=== PATIENT | female | born 1990 | race Caucasian/White ===

== ENCOUNTER → 2017-02-13 | Outpatient (CLI) | payer OTHER ==
[~2017-02-13] MED LIST: ALPRAZOLAM PO; DEPO-PROVER400 MG/ML; FLEXERIL10 MG PO; MACROBID100 MG PO; MOTRIN600 M1 PO; NO MEDICATIONS; PREDNISONE10 MG/DOSE PO; SKELAXIN PO; TYLOX1 CAP 5/50 PO; VALTREX PO; VICODIN PO
--- NOTE | ~2017-02-13 | MR32 ---
[facility] A Service [facility] RADIOLOGY TEXT RESULTS PATIENT: DALTON RODRIGUEZ LOCATION: [facility] : 86 UNIT #: [id number] AGE: [address]: Marvin Rg MD SEX: F ORDER DR: [id number] [address] [id number] O MR#: [id number] Acc #: [id number] NAME: DALTON RODRIGUEZ : 1990 SEX: F STUDY DATE/TIME: 02/13/2017 10:00 UNIT: [facility] ROOM: STUDY DESCRIPTION: MR Cervical Wo Contrast Attending Physician: Marvin Rg M.D. Ordering Physician: Braden Best M.D. Primary Care Physician: Braden Best M.D. MRI CENTER REPORT This report is preliminary unless electronic signature is present. EXAM Cervical MRI HISTORY Worsening neck pain radiating toward the right side for the past several months. TECHNIQUE Multiplanar imaging of the cervical spine was performed with short and long TR. FINDINGS Alignment is satisfactory. The upper cervical discs are unremarkable with only minimal midline disc bulging seen at C4-5 and C5-6. At C6-7 there is a right-sided disc herniation with exiting nerve root compression. The cervical cord is normal in size and signal. There is no evidence of marrow edema or paraspinous mass. IMPRESSION Large right-sided disc herniation C6-7. Mild midline disc bulging C4-5 and C5-6. Dictated by... Gurdeep Buck M.D. THIS IS AN ELECTRONICALLY VERIFIED REPORT Gurdeep Buck M.D. at 02/21/2017 2:02 PM RLF/shilpid [facility] A Service [facility] RADIOLOGY TEXT RESULTS PATIENT: DALTON RODRIGUEZ LOCATION: [facility] : [birth year] UNIT #: [id number] AGE: [address]: Marvin Rg MD SEX: F ORDER DR: TD: 02/14/2017 00:56 JOB #: [id number] MRI CENTER REPORT Page 1 of 1
== END | disposition home or self-care (01) ==
LOC: SMRI 09:42
DX: S16.1XXA Strain of muscle, fascia and tendon at neck level, initial encounter (principal); M54.2 Cervicalgia; M50.223 Other cervical disc displacement at C6-C7 level; M50.821 Other cervical disc disorders at C4-C5 level; M50.822 Other cervical disc disorders at C5-C6 level
CPT/HCPCS: 72141